=== PATIENT | female | born 1990 | race African-American/Black ===

== ENCOUNTER 2016-12-17 22:21 | Inpatient (IN) | payer SELFPAY ==
[~2016-12-17 22:21] MED LIST: PREN-96 OR
[2016-12-17] MEDS ORDERED: LACTATED RINGER'S 1,000 ML IV SCH (23:16)
[2016-12-17] MEDS ORDERED: LACT. RINGERS/OXYTOCIN 20UNITS 1,000 ML IV SCH (23:16)
[2016-12-17] MEDS ORDERED: METHYLERGONOVINE MALEATE 0.2 MG/ML AMP IM PRN (23:30)
[2016-12-17] MEDS ORDERED: DERMOPLAST 60ML BOTTLE TOP PRN (23:30)
[2016-12-17] MEDS ORDERED: PHISODERM TOP SOLN 240ML BTL TOP PRN (23:30)
[2016-12-17] MEDS ORDERED: WITCH HAZEL-GLYCERIN PAD TOP PRN (23:30)
[2016-12-17] MEDS ORDERED: IBUPROFEN 600 MG TAB PO ONE (23:32)
[2016-12-18 00:29] LABS: Urine Bilirubin Negative (Negative); Urine Blood Negative /uL (Negative); Urine Color Yellow (Yellow); Urine Glucose Normal (Normal); Urine Ketone Negative (Negative); Urine Mucus FEW (None Seen); Urine Nitrite Negative (Negative); Urine RBC 1 /hpf (0 - 4); Urine Squamous Epithelial Cell FEW /hpf (<5); Urine Urobilinogen Normal (Negative)
[2016-12-18 00:46] LABS: Albumin 2.2 g/dL (3.4-5.0); BUN/Creatinine Ratio 6.2; Bilirubin, Total 0.5 mg/dL (0.2-1.0); Total Protein 6.4 g/dL (6.4-8.2)
[2016-12-18 00:53] LABS: INR 0.94 (0.9-1.15); Partial Thromboplastin Time 23.7 sec (22.64-33.71); Prothrombin Time 10.2 sec (9.37-12.3)
[2016-12-18] MEDS ORDERED: LABETALOL HCL 200 MG TAB PO ONE (01:15)
[2016-12-18 01:43] LABS: Basophils # (auto) 0 uL; Basophils % (auto) 0.4 % (0.0-2.0); Eosinophils # (auto) 0 uL; Eosinophils % (auto) 0.5 % (0.0-7.0); Hematocrit 36.5 % (36.0-46.0); Hemoglobin 12.5 g/dL (12.2-16.2); Lymphocytes # (auto) 0.8 uL; Lymphocytes % (auto) 14.7 % (10.0-50.0); Mean Corpuscular Hgb Conc. 34.2 g/dL (32.0-36.0); Mean Corpuscular Volume 96.5 fL (80.0-100.0); Mean Platelet Volume 10.7 fL (7.4-10.4); Monocytes # (auto) 0.2 uL; Monocytes % (auto) 4.3 % (0.0-12.0); Neutrophils # (auto) 4.4 uL; Neutrophils % (auto) 80.1 % (37.0-80.0); Red Cell Distribution Width 14.7 % (11.6-16.0); White Blood Cell 5.5 10^3/uL (4.4-10.8)
[2016-12-18 01:44] LABS: Anisocytosis Slight; Platelet Count (auto) 160 10^3/uL (140-450); Platelet Estimate Adequate
[2016-12-18] MEDS ORDERED: IBUPROFEN 600 MG TAB PO ONE (03:23)
[2016-12-18 03:30] VITALS: BP 103/57
[2016-12-18] MEDS ORDERED: ACETAMINOPHEN 325 MG TAB PO PRN (04:15)
[2016-12-18] MEDS ORDERED: POTASSIUM CHL 20 Meq TABLET PO ONE (04:30)
[2016-12-18] MEDS: IBUPROFEN 600 MG TAB PO PRN ×4 (06:46→17:23)
[2016-12-18 06:57] VITALS: BP 123/72
[2016-12-18] MEDS ORDERED: NIFEdipine ER 30 MG TAB PO SCH ×2 (10:00→22:00)
[2016-12-18] MEDS ORDERED: LABETALOL HCL 200 MG TAB PO SCH (10:00)
[2016-12-18 12:30] VITALS: BP 126/72
[2016-12-18 16:30] VITALS: BP 126/80
[2016-12-18 18:45] VITALS: BP 120/77
[2016-12-18 23:00] VITALS: BP 114/74
[2016-12-19 07:00] VITALS: BP 110/63
[2016-12-19 10:50] VITALS: BP 125/73
[2016-12-19] MEDS ORDERED: TETANUS-DIPTH-ACEL PERTUSSIS 0.5ML SYRG IM ONE (12:00)
== END 2016-12-19 12:30 | disposition home or self-care (01) | DRG 775 ==
LOC: LDRP 22:21
PROVIDERS: ADMIT Specialist; ATTEND Specialist
PROC: 10E0XZZ Delivery of Products of Conception, External Approach (ICD-10-PCS; principal; 2016-12-17)
PROC: 10907ZC Drainage of Amniotic Fluid, Therapeutic from Products of Conception, Via Natural or Artificial Opening (ICD-10-PCS; 2016-12-17)
DX: O62.3 Precipitate labor (principal); Z37.0 Single live birth; O34.211 Maternal care for low transverse scar from previous cesarean delivery; Z3A.39 39 weeks gestation of pregnancy
CPT/HCPCS: 36415; 59025; 59612; 80053; 80307; 81001; 84132; 85025; 85610; 85730; 86592; 86703; 86762; 86850; 86900; 86901; 87340; 96361; 96366

== ENCOUNTER 2017-11-17 12:20 | Inpatient (IN) | payer MEDICAID, OTHER ==
[~2017-11-17] VITALS: Ht 165.1 cm; Wt 61.2 kg
[2017-11-17] VITALS (9 sets, daily range): BP systolic 136–156; BP diastolic 74–97
[2017-11-17] MEDS ORDERED: LACTATED RINGER'S 1,000 ML IV SCH ×2 (12:44)
[2017-11-17] MEDS ORDERED: AMPICILLIN SOD 1 GM VL ONE (13:06)
[2017-11-17] MEDS ORDERED: TERBUTALINE SULFATE 1 MG/ML 1ML VIAL SC ONE (13:06)
[2017-11-17] MEDS ORDERED: BETAMETHASONE ACET (6MG/ML) 5ML VIAL IM ONE (13:15)
[2017-11-17] MEDS ORDERED: AMPICILLIN SOD 2GM INJ 2 GM in SODIUM CHL 0.9% 100 ML IV ONE (13:15)
[2017-11-17] MEDS: TERBUTALINE SULFATE 1 MG/ML 1ML VIAL SC SCH ×3 (13:35→23:58)
[2017-11-17 14:03] LABS: Basophils # (auto) 0 uL; Eosinophils # (auto) 0 uL; Hemoglobin 11.4 g/dL (12.2-16.2); Monocytes # (auto) 0.3 uL; Neutrophils # (auto) 6.3 uL; Red Cell Distribution Width 14.5 % (11.8-14.3); White Blood Cell 7.8 10^3/uL (4.4-10.8)
[2017-11-17 14:04] LABS: Basophils % (auto) 0.3 % (0.0-2.0); Eosinophils % (auto) 0.2 % (0.0-7.0); Hematocrit 32.9 % (36.0-46.0); Lymphocytes # (auto) 1.1 uL; Lymphocytes % (auto) 14.7 % (10.0-50.0); Mean Corpuscular Hemoglobin 35.4 pg (28.0-32.0); Mean Corpuscular Hgb Conc. 34.5 g/dL (32.0-36.0); Mean Corpuscular Volume 102.6 fL (80.0-100.0); Monocytes % (auto) 3.5 % (0.0-12.0); Neutrophils % (auto) 81.3 % (37.0-80.0); Platelet Count (auto) 127 10^3/uL (140-450); Red Blood Cells 3.21 10^6/uL (4.0-5.20)
[2017-11-17 14:08] LABS: Albumin 2.1 g/dL (3.4-5.0); Bilirubin, Total 0.9 mg/dL (0.2-1.0); Calcium 7.5 mg/dL (8.5-10.1); Total Protein 6.2 g/dL (6.4-8.2); Uric Acid 9.1 mg/dL (2.6-6.0)
[2017-11-17 14:11] LABS: Potassium 2.4 mmol/L (3.5-5.1)
[2017-11-17] MEDS ORDERED: LACT. RINGERS/OXYTOCIN 20UNITS 1,000 ML IV SCH ×2 (14:16→15:17)
[2017-11-17 14:17] LABS: Amphetamine Screen, Urine POSITIVE (NEGATIVE); Barbiturate Scree,Urine NEGATIVE (NEGATIVE); Benzodiazephine Screen, Urine NEGATIVE (NEGATIVE); Cannabinoid Screen, Urine NEGATIVE (NEGATIVE); Cocaine Screen, Urine NEGATIVE (NEGATIVE); Opiate Scree,Urine NEGATIVE (NEGATIVE); Phencyclidine Screen, Urine NEGATIVE (NEGATIVE)
[2017-11-17 14:21] LABS: INR 1.02 (0.9-1.15); Partial Thromboplastin Time 26.1 sec (23.78-33.04); Prothrombin Time 10.9 sec (9.27-12.13)
[2017-11-17] MEDS ORDERED: SUCCINYLCHOLINE CHLORIDE 20 MG/ML 10ML VIAL IV ONE (14:25)
[2017-11-17 14:27] LABS: Urine Bacteria NONE SEEN /hpf (None Seen); Urine Blood Negative /uL (Negative); Urine Specific Gravity 1.003 (1.001-1.035); Urine WBC <1 /hpf (0 - 5)
[2017-11-17] MEDS ORDERED: OXYTOCIN 10 UNIT/ML 10ML VIAL ONE (14:27)
[2017-11-17] MEDS ORDERED: ROCURONIUM 10MG/ML 10ML VIAL IV ONE (14:27)
[2017-11-17] MEDS ORDERED: PROPOFOL 10 MG/ML 20 ML IV ONE (14:27)
[2017-11-17] MEDS ORDERED: PHISODERM TOP SOLN 240ML BTL TOP PRN (14:30)
[2017-11-17] MEDS ORDERED: LIDOCAINE 2% (LOCAL ANESTH.) PF 5ml SDV ID ONE (14:30)
[2017-11-17] MEDS ORDERED: DERMOPLAST 60ML BOTTLE TOP PRN (14:30)
[2017-11-17] MEDS ORDERED: CARBOPROST TROMETHAMINE 250 MCG/1ML VIAL IM PRN (14:30)
[2017-11-17] MEDS ORDERED: POTASSIUM CHL 20 Meq TABLET PO ONE (14:30)
[2017-11-17] MEDS ORDERED: WITCH HAZEL-GLYCERIN PAD TOP PRN (14:30)
[2017-11-17] MEDS ORDERED: METHYLERGONOVINE MALEATE 0.2 MG/ML AMP IM PRN (14:30)
[2017-11-17] MEDS ORDERED: ceFAZolin 1GM VL ONE (14:31)
[2017-11-17] MEDS ORDERED: fentaNYL CITRATE 100 MCG/2 ML VL ONE (14:42)
[2017-11-17] MEDS ORDERED: METOCLOPRAMIDE HCL 5MG/ml INJ 2ml VIAL ONE (15:02)
[2017-11-17] MEDS ORDERED: KETOROLAC TROMETH 30 MG/ML 1ML VIAL IV PRN (15:30)
[2017-11-17] MEDS ORDERED: ONDANSETRON HCL 4 MG/2 ML VIAL IV PRN ×2 (15:30→17:15)
[2017-11-17] MEDS ORDERED: MORPHINE SULFATE 4 MG/ML SYR/VIAL IV PRN (15:30)
[2017-11-17] MEDS: HYDROmorphone HCL 2 MG/ML VL IV PRN ×4 (15:35→16:23)
[2017-11-17] MEDS ORDERED: HYDROmorphone HCL 2 MG/ML VL ONE (15:38)
[2017-11-17] MEDS ORDERED: ONDANSETRON HCL 4 MG/2 ML VIAL IV ONE (15:45)
[2017-11-17] MEDS ORDERED: ACCU-CHEK COMFORT CURVE STRIP VI ONE (15:45)
[2017-11-17] MEDS ORDERED: NALOXONE HCL 0.4 MG/ML VIAL IV PRN (15:45)
[2017-11-17] MEDS ORDERED: OXYTOCIN 10UNIT/ML 1ML VIAL ONE (15:54)
[2017-11-17 20:12] LABS: Basophils # (auto) 0 uL; Eosinophils # (auto) 0 uL; Hemoglobin 11.4 g/dL (12.2-16.2); Lymphocytes # (auto) 0.9 uL; Red Cell Distribution Width 14.6 % (11.8-14.3)
[2017-11-17 20:13] LABS: Hematocrit 33.3 % (36.0-46.0); Lymphocytes % (auto) 5.3 % (10.0-50.0); Mean Corpuscular Hemoglobin 35.8 pg (28.0-32.0); Mean Corpuscular Hgb Conc. 34.2 g/dL (32.0-36.0); Mean Corpuscular Volume 104.7 fL (80.0-100.0); Monocytes # (auto) 0.4 uL; Monocytes % (auto) 2.2 % (0.0-12.0); Neutrophils % (auto) 92.5 % (37.0-80.0); Nucleated Red Blood Cells % 0.1 %; Platelet Count (auto) 132 10^3/uL (140-450); Red Blood Cells 3.18 10^6/uL (4.0-5.20); White Blood Cell 16.3 10^3/uL (4.4-10.8)
[2017-11-17 20:32] LABS: BUN/Creatinine Ratio 1.7; Calcium 7.8 mg/dL (8.5-10.1); Potassium 3.9 mmol/L (3.5-5.1)
[2017-11-17 20:35] LABS: Bilirubin, Total 0.6 mg/dL (0.2-1.0); Total Protein 6.1 g/dL (6.4-8.2)
[2017-11-17] MEDS: KETOROLAC TROMETH 30 MG/ML 1ML VIAL IV PRN (20:41)
[2017-11-17] MEDS ORDERED: ceFAZolin 1GM/50ML 50 ML IV SCH (22:00)
[2017-11-17] MEDS: ceFAZolin 1GM/50ML 50 ML IV SCH (22:38)
[2017-11-17] MEDS: LACT. RINGERS/OXYTOCIN 20UNITS 1,000 ML IV SCH ×2 (22:39→23:49)
[2017-11-17] MEDS: POTASSIUM CHL 20MEQ/100ML 100 ML IV SCH (23:59)
[2017-11-18] VITALS (12 sets, daily range): BP systolic 130–168; BP diastolic 50–98
[2017-11-18] MEDS: POTASSIUM CHL 20MEQ/100ML 100 ML IV SCH
[2017-11-18] MEDS: MORPHINE SULFATE 4 MG/ML SYR/VIAL IV PRN ×2 (02:20→07:47)
[2017-11-18 03:06] LABS: RPR Non Reactive (Non Reactive)
[2017-11-18] MEDS: KETOROLAC TROMETH 30 MG/ML 1ML VIAL IV PRN (05:35)
[2017-11-18] MEDS: ceFAZolin 1GM/50ML 50 ML IV SCH ×2 (05:36→14:00)
[2017-11-18 07:31] LABS: Basophils # (auto) 0 uL; Basophils % (auto) 0.1 % (0.0-2.0); Eosinophils # (auto) 0 uL; Hemoglobin 10.4 g/dL (12.2-16.2); Monocytes # (auto) 0.8 uL
[2017-11-18 07:32] LABS: Lymphocytes # (auto) 1.1 uL; Lymphocytes % (auto) 7.1 % (10.0-50.0); Mean Corpuscular Hgb Conc. 34.8 g/dL (32.0-36.0); Mean Corpuscular Volume 103.3 fL (80.0-100.0); Monocytes % (auto) 5.1 % (0.0-12.0); Neutrophils # (auto) 13.6 uL; Neutrophils % (auto) 87.7 % (37.0-80.0); Nucleated Red Blood Cells % 0.1 %; Platelet Count (auto) 136 10^3/uL (140-450); Red Cell Distribution Width 15.1 % (11.8-14.3); White Blood Cell 15.6 10^3/uL (4.4-10.8)
[2017-11-18] MEDS ORDERED: NIFEdipine ER 30 MG TAB PO SCH (08:00)
[2017-11-18] MEDS ORDERED: SIMETHICONE 80 MG CHEWABLE TABLET PO PRN (08:00)
[2017-11-18] MEDS ORDERED: HYDROcodone-ACET 5/325MG TAB PO PRN (08:00)
[2017-11-18] MEDS: DOCUSATE SOD 100 MG CAP PO SCH ×2 (10:00→23:03)
[2017-11-18 10:07] LABS: Rubella Antibodies, IgG 2.45 index (Immune >0.99)
[2017-11-18] MEDS: IBUPROFEN 800 MG TAB PO PRN ×2 (11:46→21:23)
[2017-11-18] MEDS: HYDROcodone-ACET 5/325MG TAB PO PRN ×3 (12:35→23:03)
[2017-11-19 03:30] VITALS: BP 124/81
[2017-11-19] MEDS: HYDROcodone-ACET 5/325MG TAB PO PRN ×4 (03:32→21:33)
[2017-11-19 07:06] VITALS: BP 120/75
[2017-11-19] MEDS: DOCUSATE SOD 100 MG CAP PO SCH ×2 (09:52→22:00)
[2017-11-19] MEDS: NIFEdipine ER 30 MG TAB PO SCH (09:53)
[2017-11-19 11:00] VITALS: BP 134/88
[2017-11-19 15:00] VITALS: BP 130/83
[2017-11-19] MEDS ORDERED: ONDANSETRON HCL 4 MG/2 ML VIAL ONE (19:08)
[2017-11-19] MEDS ORDERED: ONDANSETRON HCL 4 MG/2 ML VIAL IV PRN ×2 (19:15→22:15)
[2017-11-19 19:30] VITALS: BP 135/90
[2017-11-19] MEDS: IBUPROFEN 800 MG TAB PO PRN (21:00)
[2017-11-20] MEDS: HYDROcodone-ACET 5/325MG TAB PO PRN (07:20)
[2017-11-20 07:30] VITALS: BP 117/72
[2017-11-20] MEDS: NIFEdipine ER 30 MG TAB PO SCH (10:00)
[2017-11-20] MEDS: DOCUSATE SOD 100 MG CAP PO SCH (10:27)
[2017-11-20 11:00] VITALS: BP 118/72
[2017-11-20] MEDS: IBUPROFEN 800 MG TAB PO PRN (12:04)
== END 2017-11-20 14:50 | disposition home or self-care (01) | DRG 540 ==
LOC: EDBD 12:20 → OBSVTOIN 12:20 → MERGE 12:20 → LDRP 12:20
PROVIDERS: ADMIT Obstetrics & Gynecology; ATTEND Obstetrics & Gynecology
PROC: 10D00Z1 Extraction of Products of Conception, Low, Open Approach (ICD-10-PCS; principal; 2017-11-17 14:23)
DX: O34.211 Maternal care for low transverse scar from previous cesarean delivery (principal); O45.93 Premature separation of placenta, unspecified, third trimester; O60.14X0 Preterm labor third trimester with preterm delivery third trimester, not applicable or unspecified; O46.93 Antepartum hemorrhage, unspecified, third trimester; Z91.19 Patient's noncompliance with other medical treatment and regimen; Z37.0 Single live birth; Z3A.34 34 weeks gestation of pregnancy
CPT/HCPCS: 36415; 59025; 76805; 80053; 80307; 81001; 81002; 82948; 82962; 84550; 85025; 85610; 85730; 86592; 86703; 86762; 86850; 86900; 86901; 87340; 94760; 96365; 96366; 96372; 96375; J0330; J0690; J1885; J2405; J2590; J2704; J3480

== ENCOUNTER 2019-08-12 09:36 | Emergency (ER) | payer MEDICAID ==
[~2019-08-12] VITALS: Ht 162.6 cm; Wt 65.9 kg
[2019-08-12] MEDS ORDERED: SODIUM CHLORIDE 0.9% 500 ML IVB ONE (10:11)
[2019-08-12] MEDS ORDERED: SODIUM CHLORIDE 0.9% 1,000 ML IV ONE (10:11)
[2019-08-12 10:23] LABS: Basophils # (auto) 0 10 ^3/uL (0-0.2); Basophils % (auto) 0.4 % (0.0-2.0); Eosinophils # (auto) 0 10 ^3/uL (0-0.8); Eosinophils % (auto) 0.4 % (0.0-7.0); Hematocrit 43.2 % (36.0-46.0); Hemoglobin 14.9 g/dL (12.2-16.2); Lymphocytes # (auto) 1.2 10 ^3/uL (0.4-5.4); Lymphocytes % (auto) 19.1 % (10.0-50.0); Mean Corpuscular Hemoglobin 32.5 pg (28.0-32.0); Mean Corpuscular Hgb Conc. 34.4 g/dL (32.0-36.0); Mean Corpuscular Volume 94.4 fL (80.0-100.0); Monocytes # (auto) 0.4 10 ^3/uL (0-1.3); Monocytes % (auto) 6.6 % (0.0-12.0); Neutrophils # (auto) 4.7 10 ^3/uL (1.6-8.6); Neutrophils % (auto) 73.5 % (37.0-80.0); Nucleated Red Blood Cells % 0.1 %; Platelet Count (auto) 191 10^3/uL (140-450); Red Blood Cells 4.58 10^6/uL (4.0-5.20); Red Cell Distribution Width 16.4 % (11.8-14.3); White Blood Cell 6.4 10^3/uL (4.4-10.8)
[2019-08-12 10:40] LABS: Albumin 3.8 g/dL (3.4-5.0); Calcium 8.7 mg/dL (8.5-10.1)
[2019-08-12 10:43] LABS: Bilirubin, Total 1.2 mg/dL (0.2-1.0)
[2019-08-12] MEDS ORDERED: LORazepam 2MG/ML-1ML VIAL IV ONE (10:45)
[2019-08-12 10:46] LABS: Potassium 2.6 mmol/L (3.5-5.1)
[2019-08-12 10:57] LABS: BUN/Creatinine Ratio 10.8
[2019-08-12] MEDS ORDERED: POTASSIUM EFFERVESENT TAB 25 MEQ PO ONE (11:00)
[2019-08-12 11:39] LABS: Salicylate 3.8 mg/dL (2.8-20.0)
[2019-08-12 11:42] LABS: Acetaminophen < 2.0 ug/mL (10-30)
[2019-08-12 12:47] LABS: Urine WBC None Seen /hpf (0 - 5)
[2019-08-12 13:09] LABS: Urine Bacteria NONE SEEN /hpf (None Seen); Urine Blood Negative /uL (Negative)
[2019-08-12 13:23] LABS: Alcohol, Urine < 3.0 mg/dL (0-5); Amphetamine Screen, Urine POSITIVE (NEGATIVE); Barbiturate Scree,Urine NEGATIVE (NEGATIVE); Benzodiazephine Screen, Urine NEGATIVE (NEGATIVE); Cannabinoid Screen, Urine NEGATIVE (NEGATIVE); Cocaine Screen, Urine NEGATIVE (NEGATIVE); Opiate Scree,Urine NEGATIVE (NEGATIVE); Phencyclidine Screen, Urine NEGATIVE (NEGATIVE)
[2019-08-12 15:32] VITALS: BP 144/97
== END 2019-08-12 17:57 | disposition left against medical advice (07) ==
LOC: ER 09:36
DX: F15.959 Other stimulant use, unspecified with stimulant-induced psychotic disorder, unspecified (principal); F17.210 Nicotine dependence, cigarettes, uncomplicated; E87.6 Hypokalemia; F10.10 Alcohol abuse, uncomplicated; R74.8 Abnormal levels of other serum enzymes; Z59.0 Homelessness
CPT/HCPCS: 36415; 70450; 71045; 80053; 80307; 80329; 81001; 81025; 83735; 84443; 84702; 85025; 93005; 96361; 96374; 99285; J2060; J7030

== ENCOUNTER 2020-01-23 11:50 | Emergency (ER) | payer MEDICAID, OTHER ==
[~2020-01-23] VITALS: Ht 162.6 cm; Wt 48.5 kg
[2020-01-23 12:09] VITALS: BP 112/78
== END 2020-01-23 12:15 ==
LOC: ER 11:50
DX: R60.0 Localized edema (principal); F17.210 Nicotine dependence, cigarettes, uncomplicated; Z59.0 Homelessness

== ENCOUNTER 2022-06-27 06:54 | Emergency (ER) | payer MEDICAID, OTHER | END 2022-06-27 08:01 | disposition left against medical advice (07) | LOC: ER 06:54 | DX: Z00.00 Encounter for general adult medical examination without abnormal findings (principal); Z53.21 Procedure and treatment not carried out due to patient leaving prior to being seen by health care provider ==

== ENCOUNTER 2022-09-06 15:18 | Emergency (ER) | payer SELFPAY ==
[~2022-09-06] VITALS: Ht 167.6 cm; Wt 59.0 kg
[2022-09-06] MEDS ORDERED: SODIUM CHLORIDE 0.9% 1,000 ML IV ONE ×3 (15:30→17:15)
[2022-09-06] MEDS ORDERED: THIAMINE 100mg/ml INJ (200mg/2ml VIAL) IV ONE (15:30)
[2022-09-06 15:59] LABS: Basophils # (auto) 0 10 ^3/uL (0-0.2); Basophils % (auto) 0.4 % (0.0-2.0); Eosinophils # (auto) 0.2 10 ^3/uL (0-0.8); Eosinophils % (auto) 5.3 % (0.0-7.0); Hemoglobin 12.9 g/dL (12.2-16.2); Lymphocytes # (auto) 1.9 10 ^3/uL (0.4-5.4); Lymphocytes % (auto) 41.6 % (10.0-50.0); Mean Corpuscular Hemoglobin 34.8 pg (28.0-32.0); Mean Corpuscular Hgb Conc. 34.9 g/dL (32.0-36.0); Mean Corpuscular Volume 99.5 fL (80.0-100.0); Monocytes # (auto) 0.4 10 ^3/uL (0-1.3); Monocytes % (auto) 8.9 % (0.0-12.0); Neutrophils % (auto) 43.8 % (37.0-80.0); Nucleated Red Blood Cells % 0.1 %; Red Blood Cells 3.72 10^6/uL (4.0-5.20); Red Cell Distribution Width 13.7 % (11.8-14.3); White Blood Cell 4.6 10^3/uL (4.4-10.8)
[2022-09-06 16:15] LABS: Calcium 7.9 mg/dL (8.5-10.1)
[2022-09-06 16:22] LABS: Bilirubin, Total 0.2 mg/dL (0.2-1.0); Total Protein 6.4 g/dL (6.4-8.2)
[2022-09-06 16:40] LABS: Potassium 2.8 mmol/L (3.5-5.1)
[2022-09-06] MEDS ORDERED: POTASSIUM EFFERVESENT TAB 25 MEQ PO ONE (16:45)
== END 2022-09-07 06:12 | disposition home or self-care (01) ==
LOC: ER 15:18
DX: F10.10 Alcohol abuse, uncomplicated (principal); F17.210 Nicotine dependence, cigarettes, uncomplicated; F15.10 Other stimulant abuse, uncomplicated; Z59.00 Homelessness unspecified
CPT/HCPCS: 36415; 80053; 80320; 85025; 93005; 96361; 96374; 99284; J3411; J7030